=== PATIENT | female | born 1990 ===

== ENCOUNTER 2018-03-03 10:28 | Emergency (ER) | payer OTHER ==
[2018-03-03 10:44] VITALS: BP 149/88
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
== END 2018-03-03 11:55 | disposition home or self-care (01) ==
LOC: UCEAST 10:28
DX: Z02.79 Encounter for issue of other medical certificate (principal); R03.0 Elevated blood-pressure reading, without diagnosis of hypertension
CPT/HCPCS: 99201; G0463